=== PATIENT | female | born 1990 | race Caucasian/White ===

== ENCOUNTER 2025-03-31 09:54 | Emergency (ER) | payer OTHER, SELFPAY ==
[2025-03-31 10:05] VITALS: BP 98/74
--- NOTE | 2025-03-31 11:29 | ED.GENMED ---
History of Present Illness
<Janee Reyes DO, Resident - Last Filed: 03/31/25 15:24>
General
Chief Complaint: Cold/Flu/URI Symptoms
Source: patient
Exam Limitations: none
Time Seen by Provider: 03/31/25 11:12
Nursing documentation reviewed up to this point in time: agreed with
History of Present Illness
History of Present Illness:
Patient is a 35 female with a pertinent past medical history presenting with fevers chills headaches and bodyaches after receiving her MMR vaccine on Thursday. Patient is about to start IVF treatment and got an updated MMR vaccine on Thursday at
10 AM. Thursday night patient started to have a headache body aches fevers chills and lethargy. Patient also noted a fever and swollen lymph nodes. Patient now notes difficulty swallowing as well as a sore throat. Patient has been able to
tolerate some crackers and sips of water. Patient took NyQuil to sleep last night and 1000 mg Tylenol at 8 AM this morning. Patient responded similarly when she received the COVID-vaccine, but it did not last this long or cause her difficulty
swallowing. Patient has history of bilateral tonsillectomy.
Review of Systems
<Janee Reyes DO, Resident - Last Filed: 03/31/25 15:24>
Review of Systems
Allergies reviewed?: Yes
All Other Systems: ROS reviewed and negative except as documented in HPI and ROS
Constitutional: Reports fever, fatigue and chills
EENT: Reports sore throat
Respiratory: Reports no symptoms
Cardiac: Reports no symptoms
ABD/GI: Reports no symptoms
: Reports no symptoms
Skin: Reports no symptoms
Neurological: Reports headache
Endocrine: Reports no symptoms
Hematologic/Lymphatic: Reports no symptoms
Psychiatric: Reports no symptoms
Phy Exam
<Janee Reyes DO, Resident - Last Filed: 03/31/25 15:24>
General Physical Exam
General Presentation: mild distress
General age: appears stated age
General Skin: warm and dry
General Habitus: normal
General Mental: alert
ENT Exam
ENT Exam: pharyngeal erythema and other (submental lymph nodes palpable)
Cardiovascular Exam
Cardiovascular Exam: regular rate/rhythm
Heart Sounds: normal
Pulmonary Exam
Pulmonary Exam: lungs clear, no respiratory distress, no crackles and no wheezing
Gastrointestinal Exam
Gastrointestinal Exam: normal bowel sounds, non tender and soft
Skin Exam
Skin Exam: normal color and warm/dry
Psychiatric Exam
Psychiatric Exam: normal mood/affect
Course
<Janee Reyes DO, Resident - Last Filed: 03/31/25 15:24>
Orders/Labs/Results
Orders:
Orders
03/31/25 11:45
COVID-19 Antigen Urgent
Source: Nasal Swab
Influenza A+B Rapid Molecular Urgent
NIRAJ Source: Nasal Swab
Specimen Description:
Rapid Strep Group A Stat
NIRAJ Source: Throat/Pharynx
Specimen Description:
Date Specimen was Collected: 03/31/25
Time Specimen was Collected: 11:43
Vital Signs
Initial and Last Documented VS:
Initial Vital Signs
Temp Pulse Resp BP Pulse Ox
99 F 86 16 98/74 97
03/31/25 10:05 03/31/25 10:05 03/31/25 10:05 03/31/25 10:05 03/31/25 10:05
Last Documented Vital Signs
Temp Pulse Resp BP Pulse Ox
98.3 F 59 15 106/62 100
03/31/25 12:39 03/31/25 12:39 03/31/25 12:39 03/31/25 12:39 03/31/25 12:39
<Oleg Lemus DO - Last Filed: 03/31/25 13:23>
Orders/Labs/Results
Orders:
Orders
03/31/25 11:45
COVID-19 Antigen Urgent
Source: Nasal Swab
Influenza A+B Rapid Molecular Urgent
NIRAJ Source: Nasal Swab
Specimen Description:
Rapid Strep Group A Stat
NIRAJ Source: Throat/Pharynx
Specimen Description:
Date Specimen was Collected: 03/31/25
Time Specimen was Collected: 11:43
Vital Signs
Initial and Last Documented VS:
Initial Vital Signs
Temp Pulse Resp BP Pulse Ox
99 F 86 16 98/74 97
03/31/25 10:05 03/31/25 10:05 03/31/25 10:05 03/31/25 10:05 03/31/25 10:05
Last Documented Vital Signs
Temp Pulse Resp BP Pulse Ox
98.3 F 59 15 106/62 100
03/31/25 12:39 03/31/25 12:39 03/31/25 12:39 03/31/25 12:39 03/31/25 12:39
<Janee Reyes DO, Resident - Last Filed: 03/31/25 15:24>
MDM/Problems Addressed
Differential Diagnosis Includes:
viral symptoms, myalgias
MDM/Problems Addressed:
Will swab patient for strep, flu, COVID. If all come back negative we will give patient 10 mg Decadron. Likely self limited viral symptoms related to recent vaccine.
<Janee Reyes DO, Resident - Last Filed: 03/31/25 15:24>
*Pulse Oximetry
SaO2: 97
Oxygen Mode of Delivery: Room air
Patient hypoxic: no
*Critical Care Note
Total Time (30-74mins, 75-104mins- exclusive of procedures): Not Applicable
ED Attending Note
<Janee Reyes DO, Resident - Last Filed: 03/31/25 15:24>
-
Portions of this chart may have been created with voice recognition software.� Occasional wrong word or��sound alike� substitutions may have occurred due to the inherent limitations of voice recognition software.
<Oleg Lemus DO - Last Filed: 03/31/25 13:23>
ED Attending Note
Patient seen and examined by attending physician: Yes
I performed a history and physical exam of patient and discussed management with resident, I reviewed resident's note and agree with documented findings and plan of care.: Yes
ED Attending Note:
I reviewed and agree with history and treatment plan by Janee Reyes DO. My exam revealed pharyngeal erythema and bilateral cervical and adenopathy. No signs of tonsillar abscess. No respiratory distress. Treat with penicillin follow-up
primary care
Discharge Plan
Departure
Patient Disposition: Home (Routine Discharge)
Date of Disposition: 03/31/25
Time of Disposition: 12:28
Patient with high blood pressure during this ER visit?: No
Discharge Problem:
Strep pharyngitis
Instructions: Strep throat in adults
Prescriptions:
New
penicillin V potassium 500 mg tablet
500 mg PO TID Qty: 30 0RF
Rx Instructions:
Take 1 tablet 3 times daily for 10 days
Referrals:
Earlene Edwards MD [Family Provider, Family Practice]
Activity Restrictions/Additional Instructions:
Please take penicillin 500 mg 1 tablet 3 times daily for 10 days.
Interventions
Interventions:
*Risk Screen - Suicide Last Done: 03/31/25 10:05
*General Assessment Last Done: 03/31/25 11:39
*Neglect/Abuse Screening Last Done: 03/31/25 10:05
*ED- Fall Risk Assessment Last Done: 03/31/25 11:39
*ED COVID-19 Vaccine History Last Done: 03/31/25 11:39
*Nursing Disposition Last Done: 03/31/25 12:40
ED- Pulmonary Assessment Last Done: 03/31/25 11:41
Discharge Date and Time
Discharge Date/Time: 03/31/25 12:40
Print Language: INDONESIAN
[2025-03-31 11:39] VITALS: BMI 19.9
[2025-03-31 12:13] LABS: COVID-19 Antigen Negative (Negative)
[2025-03-31 12:39] VITALS: BP 106/62
== END 2025-03-31 12:40 | disposition home or self-care (01) ==
LOC: EMR 09:54
PROVIDERS: EMERGENCY PHYSICIAN Emergency Medicine; FAMILY PHYSICIAN Family Medicine
DX: J02.0 Streptococcal pharyngitis (principal); Z11.52 Encounter for screening for COVID-19
CPT/HCPCS: 99283; 87070; 87147; 87502; 87811; 87880